=== PATIENT | female | born 1935 | race Caucasian/White ===

== ENCOUNTER → 2016-07-30 | Outpatient (CLI) | payer OTHER, BC | LOC: BRMIMAGING 08:40 | PROVIDERS: ATTEND Family Medicine | DX: R92.0 Mammographic microcalcification found on diagnostic imaging of breast (principal) | CPT/HCPCS: G0206 ==

== ENCOUNTER → 2016-08-28 | Outpatient (CLI) | payer OTHER, BC | LOC: BRMIMAGING 09:25 | PROVIDERS: ATTEND Family Medicine | DX: Z13.820 Encounter for screening for osteoporosis (principal); M81.0 Age-related osteoporosis without current pathological fracture; E21.3 Hyperparathyroidism, unspecified ==

== ENCOUNTER → 2017-01-21 | Outpatient (CLI) | payer OTHER, BC | LOC: BHFA 14:30 | PROVIDERS: ATTEND Internal Medicine Cardiovascular Disease | DX: I48.0 Paroxysmal atrial fibrillation (principal) ==

== ENCOUNTER → 2017-06-16 | Outpatient (CLI) | payer OTHER, BC | LOC: BRMIMAGING 15:16 | PROVIDERS: ATTEND Family Medicine | DX: Z12.31 Encounter for screening mammogram for malignant neoplasm of breast (principal); Z80.3 Family history of malignant neoplasm of breast ==

== ENCOUNTER 2018-02-15 13:56 | Emergency (ER) | payer OTHER, BC ==
[2018-02-15 14:31] LABS: PLATELET COUNT 403 10^3/uL (150-400)
--- NOTE | 2018-02-15 14:36 | EDPHY ---
H & P Stated Complaint: pt fell today at 1130, increased dizziness and falling Time Seen by Provider: 02/15/18 14:23 HPI/ROS: CHIEF COMPLAINT: Presyncope, mechanical fall HISTORY OF PRESENT ILLNESS: The patient presents to the ED after an episode of presyncope which resulted in a mechanical fall. She had a similar episode 7 weeks ago which resulted in a ramus fracture. She had been recovering from that uneventfully. The patient described a sensation of feeling "warm all over " prior to her episode of her presyncope. The patient did fall but did not sustain an acute injury. She is anticoagulated with Eliquis for atrial fibrillation. She recently stopped taking atenolol and started taking metoprolol. She denies any fever, cough, congestion or dysuria. REVIEW OF SYSTEMS: A comprehensive 10 point review of systems is otherwise negative aside from elements mentioned in the history of present illness. Source: Patient, Family - Personal History Current Tetanus Diphtheria and Acellular Pertussis (TDAP): Yes Tetanus Vaccine Date: 2001 - Medical/Surgical History Hx Asthma: No Hx Chronic Respiratory Disease: No Hx Diabetes: No Hx Cardiac Disease: Yes Hx Renal Disease: No Hx Cirrhosis: No Hx Alcoholism: No Hx HIV/AIDS: No Hx Splenectomy or Spleen Trauma: No Other PMH: Atrial fibrillation, Ablation/Dr. Burnette 2009, hip surgery - Social History Smoking Status: Current some day smoker - Physical Exam Exam: General Appearance: Alert, no distress Head: Atraumatic Eyes: Pupils equal, round, reactive ENT, Mouth: No hemotympanum, no oral trauma Neck: Nontender, trachea midline Respiratory: No chest wall tender, subcutaneous air, lungs clear bilaterally Cardiovascular: Regular rate and rhythm Abdomen: Abdomen is soft and nontender, pelvis stable Skin: No lacerations, No abrasion Back: No midline T/L/S pain Extremities: Nontender, full range of motion Neurological: A&Ox3, normal motor function, normal sensory exam Constitutional: Initial Vital Signs Temperature (C) 36.8 C 02/15/18 14:07 Heart Rate 64 02/15/18 14:07 Respiratory Rate 18 02/15/18 14:07 Blood Pressure 146/73 H 02/15/18 14:07 O2 Sat (%) 93 02/15/18 14:07 O2 Delivery Mode Room Air Allergies/Adverse Reactions: No Known Allergies Allergy (Verified 07/02/14 13:40) Home Medications: Medication Instructions Recorded DULoxetine 02/15/18 Eliquis 02/15/18 Metoprolol Tartrate 02/15/18 Prolia 02/15/18 Medical Decision Making - Diagnostics EKG Interpretation: EKG: Complete interpretation has been separately recorded in the [facility] archive. Summary impression: Sinus rhythm, rate 50 Imaging Results: Imaging Impressions Head CT 02/15/18 14:31 Impression: Underlying white matter disease and atrophy; otherwise negative noncontrast CT of the brain. Results called to Dr. Christoph Olsen at 3:15 PM at the time of the interpretation. ED Course/Re-evaluation: The patient presents to the ED for recurrent presyncope in the setting of a fall 7 weeks ago. The patient is anticoagulated. She believes she did strike her head her originally during the accident is uncertain whether she struck her head today. She did complain of a mild headache along her vertex. Given the fact that she is anticoagulated she was taken for a CT scan to exclude subdural hematoma. Fortunately the results of this study were normal. Physical examination demonstrates no evidence of an acute fracture clinically. Additional workup in the emergency department failed to demonstrate evidence of a anemia or metabolic derangement which would be an explanation for her presyncope. Urinalysis demonstrated no evidence of an acute infection. This point time I do feel the patient can be discharged home as she is asymptomatic and ambulatory. She will follow up with her primary care provider as needed. The patient does have mild pyuria and bacteriuria. A urine culture will be obtained prior to starting antibiotics as she has no UTI symptoms. The patient will contact the emergency department in 2 days to check the results of her urine culture. The patient was rechecked at 5:00 p.m.. She is ambulatory without acute complaints. Differential Diagnosis: Differential diagnosis considered includes intracranial hemorrhage, dehydration , metabolic abnormality, arrhythmia, vasovagal episode - Data Points Laboratory Results: Laboratory Results 02/15/18 14:25 02/15/18 14:25 02/15/18 02/15/18 02/15/18 16:15 14:27 14:25 WBC RBC Hgb Hct MCV MCH MCHC RDW Plt Count MPV Neut % (Auto) Lymph % (Auto) [place] % (Auto) Eos % (Auto) Baso % (Auto) Nucleat RBC Rel Count Absolute Neuts (auto) Absolute Lymphs (auto) Absolute Monos (auto) Absolute Eos (auto) Absolute Basos (auto) Absolute Nucleated RBC Immature Gran % Immature Gran # Sodium 139 mEq/L mEq/L (135-145) Potassium 3.9 mEq/L mEq/L (3.3-5.0) Chloride 104 mEq/L mEq/L (97-110) Carbon Dioxide 28 mEq/l mEq/l (22-31) Anion Gap 7 mEq/L L mEq/L (8-16) BUN 19 mg/dL mg/dL (7-23) Creatinine 0.8 mg/dL mg/dL (0.6-1.0) Estimated GFR > 60 Glucose 132 mg/dL H mg/dL (70-100) Calcium 9.8 mg/dL mg/dL (8.5-10.4) POC Troponin I 0.00 ng/mL ng/mL (0.00-0.08) Urine Color YELLOW Urine Appearance CLEAR Urine pH 6.0 (5.0-7.5) Ur Specific [place] 1.009 (1.002-1.030) Urine Protein NEGATIVE (NEGATIVE) Urine Ketones NEGATIVE (NEGATIVE) Urine Blood 1+ H (NEGATIVE) Urine Nitrate POSITIVE H (NEGATIVE) Urine Bilirubin NEGATIVE (NEGATIVE) Urine Urobilinogen NEGATIVE EU EU (0.2-1.0) Ur Leukocyte Esterase NEGATIVE (NEGATIVE) Urine RBC 1-3 /hpf /hpf (0-3) Urine WBC 3-5 /hpf H /hpf (0-3) Ur Epithelial Cells TRACE /lpf /lpf (NONE-1+) Urine Bacteria 3+ /hpf H /hpf (NONE SEEN) Urine Mucus TRACE /lpf /lpf (NONE-1+) Urine Glucose NEGATIVE (NEGATIVE) 02/15/18 14:25 WBC 12.40 10^3/uL H 10^3/uL (3.80-9.50) RBC 4.46 10^6/uL 10^6/uL (4.18-5.33) Hgb 12.5 g/dL L g/dL (12.6-16.3) Hct 38.3 % % (38.0-47.0) MCV 85.9 fL fL (81.5-99.8) MCH 28.0 pg pg (27.9-34.1) MCHC 32.6 g/dL g/dL (32.4-36.7) RDW 13.5 % % (11.5-15.2) Plt Count 403 10^3/uL H 10^3/uL (150-400) MPV 9.1 fL fL (8.7-11.7) Neut % (Auto) 84.8 % H % (39.3-74.2) Lymph % (Auto) 9.4 % L % (15.0-45.0) [place] % (Auto) 5.1 % % (4.5-13.0) Eos % (Auto) 0.2 % L % (0.6-7.6) Baso % (Auto) 0.2 % L % (0.3-1.7) Nucleat RBC Rel Count 0.0 % % (0.0-0.2) Absolute Neuts (auto) 10.51 10^3/uL H 10^3/uL (1.70-6.50) Absolute Lymphs (auto) 1.16 10^3/uL 10^3/uL (1.00-3.00) Absolute Monos (auto) 0.63 10^3/uL 10^3/uL (0.30-0.80) Absolute Eos (auto) 0.03 10^3/uL 10^3/uL (0.03-0.40) Absolute Basos (auto) 0.03 10^3/uL 10^3/uL (0.02-0.10) Absolute Nucleated RBC 0.00 10^3/uL 10^3/uL (0-0.01) Immature Gran % 0.3 % % (0.0-1.1) Immature Gran # 0.04 10^3/uL 10^3/uL (0.00-0.10) Sodium Potassium Chloride Carbon Dioxide Anion Gap BUN Creatinine Estimated GFR Glucose Calcium POC Troponin I Urine Color Urine Appearance Urine pH Ur Specific [place] Urine Protein Urine Ketones Urine Blood Urine Nitrate Urine Bilirubin Urine Urobilinogen Ur Leukocyte Esterase Urine RBC Urine WBC Ur Epithelial Cells Urine Bacteria Urine Mucus Urine Glucose Point of Care Test Results: Chemistry 02/15/18 14:27 POC Troponin I 0.00 ng/mL ng/mL (0.00-0.08) Departure - Departure Disposition: Home, Routine, Self-Care Clinical Impression: Vasovagal syncope Condition: Good Instructions: Hypotension (ED) Additional Instructions: 1. Your workup in the emergency department today demonstrates no obvious explanation for lightheadedness. 2. Please return to the ED for any worsening symptoms, chest pain, difficulty breathing or other concerns. 3. Please follow up with your primary care provider as needed. 4. We will be obtaining a urine culture to see if you have evidence of urinary tract infection. Please contact the emergency department in 2 days at to check the results. Referrals: Yury Anaya [Primary Care Provider] - As per Instructions
--- NOTE | 2018-02-15 14:37 | CPEKG ---
Test Reason : OPEN Blood Pressure : / mmHG Vent. Rate : 050 BPM Atrial Rate : 050 BPM P-R Int : 209 ms QRS Dur : 093 ms QT Int : 469 ms P-R-T Axes : 090 -24 072 degrees QTc Int : 428 ms Sinus rhythm Probable left atrial enlargement Borderline left axis deviation Confirmed by Avelino Coon ([id number]) on 02/15/2018 2:37:11 PM Referred By: Confirmed By:Avelino Coon
[2018-02-15 17:10] VITALS: BP 139/70
== END 2018-02-15 17:12 | disposition home or self-care (01) ==
DX: R55 Syncope and collapse (principal); R29.6 Repeated falls; I25.10 Atherosclerotic heart disease of native coronary artery without angina pectoris; Z79.01 Long term (current) use of anticoagulants
CPT/HCPCS: 84484-PO

== ENCOUNTER → 2018-03-14 | Outpatient (CLI) | payer OTHER, BC | LOC: BHCLAF 14:00 | PROVIDERS: ATTEND Internal Medicine | DX: R55 Syncope and collapse (principal); I48.91 Unspecified atrial fibrillation | CPT/HCPCS: 93306-PO ==

== ENCOUNTER → 2018-05-18 | Day surgery (SDC) | payer OTHER, BC ==
[~2018-05-18] MED LIST: LIDOCAINE 1% 300 MG/30 ML SDV SC ONE
--- NOTE | 2018-05-18 13:48 | EPPROC ---
Electrophysiology Procedure Note: PROCEDURE PERFORMED: Implantation of Medtronic LINQ Implantable Loop Recorder INDICATION: Syncope PROCEDURE NOTE: Patient was on table after EP study. L parasternal area was prepped and draped. Lidocaine plus bupivacaine was used for local anesthesia. Using provided insertion tool, LINQ device was placed along the 4th intercostal space. Appropriate dressing was applied. The patient left the cardiac catheterization laboratory in stable condition. Serial Numbers: Medtronic Reveal LINQ SB [id number] Programming: Patient Activated events 3 Auto Activated events 27 (Asystole 3s, HR <30 bpm, >180 bpm, >220bpm)
== END | disposition home or self-care (01) ==
LOC: FCATH 10:15
PROVIDERS: ATTEND Internal Medicine Cardiovascular Disease
PROC: 0JH602Z Insertion of Monitoring Device into Chest Subcutaneous Tissue and Fascia, Open Approach (ICD-10-PCS; principal; 2018-05-18)
DX: I48.0 Paroxysmal atrial fibrillation (principal); R55 Syncope and collapse; Z79.01 Long term (current) use of anticoagulants; F17.200 Nicotine dependence, unspecified, uncomplicated
CPT/HCPCS: C1764

== ENCOUNTER 2018-05-25 12:30 | Observation (INO) | payer OTHER, BC ==
[~2018-05-25 12:30] MED LIST changes: +BACITRACIN IRRIGATION/NS 50,000 UNITS/1,000 ML BTL IRR ONE; +DIAZEPAM 5 MG TAB PO ONE; -LIDOCAINE 1% 300 MG/30 ML SDV SC ONE; +NS 1,000 ML IV ONE; +ceFAZolin 2 GM/DEXTROSE 100 ML IV ONE; +diphenhydrAMINE 25 MG CAP PO ONE
[2018-05-25 13:20] LABS: PLATELET COUNT 352 10^3/uL (150-400)
[2018-05-25 13:34] LABS: INR 1.17 (0.83-1.16); PROTIME(PATIENT) 15.1 SEC (12.0-15.0)
--- NOTE | 2018-05-25 15:48 | PDGENHP ---
History & Physical Chief Complaint: Ventricular pauses History of Present Illness: Pauses noted on ILR interrogation today, duration up to 11 seconds occurring in both AF and NSR. Prior syncopal episode. Relevant Physical Exam: General: A&Ox4, no apparent distress. Respiratory: CTA. Cardiac: Regular rate and rhythm, S1, S2 Cardiorespiratory Assessment: Patient is anticoagulated with Eliquis, but the risk of recurrent syncope in the context of pauses lasting 11 seconds outweighs the risk for bleeding in the situation. Plan to proceed with implant of [facility]. Pop PPM today.
[2018-05-25] MEDS ORDERED: IOPAMIDOL (ISOVUE-300) 100 ML BTL ONE (17:05)
[2018-05-25] MEDS ORDERED: LIDOCAINE 1% 300 MG/30 ML SDV ONE (17:05)
[2018-05-25] MEDS ORDERED: BUPIVACAINE 0.75% 10 ML SDV ONE (17:05)
--- NOTE | 2018-05-25 17:11 | PDANEPAE ---
ANE History of Present Illness pacer ANE Past Medical History - Cardiovascular History Hx Hypertension: Yes Hx Arrhythmias: Yes Hx Chest Pain: No Hx Coronary Artery / Peripheral Vascular Disease: No Hx CHF / Valvular Disease: No Hx Palpitations: No - Pulmonary History Hx COPD: Yes Hx Asthma/Reactive Airway Disease: No Hx Recent Upper Respiratory Infection: No Hx Oxygen in Use at Home: Yes O2 in Use at Home (L/minute): 2@night Hx Sleep Apnea: No - Neurologic History Hx Cerebrovascular Accident: No Hx Seizures: No Hx Dementia: No - Endocrine History Hx Diabetes: No Hypothyroid: No Hyperthyroid: No Obesity: no - Renal History Hx Renal Disorders: No - Liver History Hx Hepatic Disorders: No ANE Review of Systems Review of Systems: - Exercise capacity Exercise capacity: >=4 METS ANE Patient History - Allergies Allergies/Adverse Reactions: No Known Allergies Allergy (Verified 07/02/14 13:40) - Home Medications Home Medications: Apixaban [Eliquis] 5 mg PO BID 02/15/18 [Last Taken 05/25/18] Metoprolol Tartrate [Lopressor 25 mg (*)] 12.5 mg PO BID 02/15/18 [Last Taken ] Acetaminophen [Tylenol 325mg (*)] 325 mg PO DAILY PRN 05/25/18 [Last Taken Unknown] Calcium Carbonate [Oyster Shell Calcium 500 mg (*)] 500 mg PO DAILY 05/25/18 [ Last Taken 05/24/18] Cholecalciferol Vit D3 [Vitamin D3 (*)] 1,000 units PO DAILY 05/25/18 [Last Taken 05/24/18] DULoxetine [Cymbalta 30 MG (*)] 30 mg PO HS 05/25/18 [Last Taken 05/24/18] - NPO status NPO Status: no food or drink >8 hours - Smoking Hx Smoking Status: Current some day smoker ANE Labs/Vital Signs - Labs Result Diagrams: 05/25/18 12:35 05/25/18 12:35 - Vital Signs Height: 178 cm Weight: 75.7 kg ANE Physical Exam - Airway Mallampati Score: Class 2 Mouth exam: normal dental/mouth exam - Pulmonary Pulmonary: no respiratory distress - Cardiovascular Cardiovascular: regular rate and rhythym - ASA Status ASA Status: III ANE Anesthesia Plan Anesthesia Plan: GA with mask, MAC
[2018-05-25] MEDS ORDERED: PROPOFOL/EMULSION 500 MG/50 ML BOTTLE IV ONE (17:14)
[2018-05-25] MEDS ORDERED: fentaNYL 100 MCG/2 ML INJ ONE (17:14)
[2018-05-25] MEDS ORDERED: LIDOCAINE 2% 2 ML INJ ONE ×2 (17:16)
[2018-05-25] MEDS ORDERED: MIDAZOLAM 2 MG/2 ML VIAL ONE (17:19)
--- NOTE | 2018-05-25 17:58 | CPEKG ---
Test Reason : OPEN Blood Pressure : / mmHG Vent. Rate : 048 BPM Atrial Rate : 048 BPM P-R Int : 213 ms QRS Dur : 095 ms QT Int : 477 ms P-R-T Axes : 082 -21 071 degrees QTc Int : 427 ms Sinus bradycardia Borderline left axis deviation Confirmed by Roel Groves ([id number]) on 05/25/2018 5:57:52 PM Referred By: Confirmed By:Roel Groves
--- NOTE | 2018-05-25 18:30 | EPPROC ---
Electrophysiology Procedure Note: PROCEDURE PERFORMED: 1. Implantation of an A/V Pacemaker 2. Subclavian vein angiography 3. Fluoroscopy 4. Explant of LINQ ILR INDICATION: Presyncope Pauses up to 11 s documented on ILR PROCEDURE NOTE: Patient presented to the cardiac catheterization laboratory in a fasting, post absorptive state . Dr. Renee administered sedation. The left infraclavicular area was prepped and draped in the usual sterile fashion. Lidocaine plus bupivacaine was used for local anesthesia. Left subclavian venography was performed by injection of iodinated contrast into the left antecubital vein. This was done to assure patency of the vein and also to assess for any anatomical aberrations. Using a combination of blunt and sharp dissection and electrocautery, the dissection was carried down to the prepectoral fascia. A pocket was made in this anatomical plane. All bleeding was controlled with electrocautery. The pocket was packed with gauze soaked in antibiotic solution. Fluoroscopy was utilized during the entire procedure for venous access and placement of the leads. Using a direct stick technique the left extrathoracic axillary vein was accessed with 2 sticks using the modified Seldinger technique. Placement of the guidewires into the venous system was confirmed by low-pressure blood return and also by visualizing the guidewires advancing into the inferior vena cava. A purse string suture was applied around the guidewires. Two #7 [place] sheaths were advanced under fluoroscopic guidance over the guidewire. An active fixation ventricular lead was advanced into the right ventricular apex and screwed in place. An active fixation atrial lead was advanced into the right atrial appendage and screwed in place. The peel away sheaths were removed. Pacing thresholds, sensing parameters and lead impedances were measured. There was no diaphragmatic stimulation at maximum output. The leads were sutured to the prepectoral fascia with 3 nonabsorbable sutures each. The pocket was again inspected for any bleeding. The leads were attached to the pacemaker securely. The pacemaker was inserted into the pocket and secured in place with a nonabsorbable suture. Fluoroscopy was performed in MED[place] and [place] planes to verify right-sided placement of the leads. Also fluoroscopy of the pacemaker pocket was performed. Medtronic LINQ ILR was explanted and wound closed with katy. The pacemaker pocket was closed in 3 layers with absorbable monocryl sutures and katy. Appropriate dressing was applied. The patient left the cardiac catheterization laboratory in stable condition. Serial Numbers: 1. Device: SJM Assurity [id number] 2. Atrial Lead: SJM Tendril 8 SN [id number] 3. Ventricular Lead: SJM Tendril 2087 SN [id number] Stimulation Thresholds & Impedance Measurements: 1. Atrial Lead P 4.4 mV 1.1 V 0.5 ms 466 ohm 2. Ventricular Lead R 8.7 mV 0.6 V 0.5 ms 716 ohm Shai Pacing Parameters 1. Pacing mode: DDDR 2. Lower rate: 60ppm 3. Upper tracking rate: 130 ppm 4. Upper sensor rate: 130 ppm
[2018-05-25] MEDS ORDERED: ACETAMINOPHEN 325 MG TAB PO PRN (18:31)
[2018-05-25] MEDS ORDERED: ALBUTEROL 3 ML DEYVIAL IH PRN (18:34)
[2018-05-25] MEDS ORDERED: fentaNYL 100 MCG/2 ML INJ IVP PRN (18:34)
[2018-05-25] MEDS ORDERED: NALOXONE HCL 0.4 MG/ML INJ IVP PRN (18:34)
--- NOTE | 2018-05-25 18:34 | POSTANESTH ---
Post Anesthetic Evaluation Cardiovascular Status: Normal, Stable Respiratory Status: Normal, Stable Level of Consciousness/Mental Status: Can Participate in Eval Pain Control: Adequate, Prn Tx Ordered Nausea/Vomiting Control: Adequate, Prn Tx Ordered Complications Possibly Related to Anesthesia: None Noted
[2018-05-25] MEDS ORDERED: DULoxetine 30 MG CAP PO SCH (21:00)
[2018-05-25] MEDS: METOPROLOL TARTRATE 25 MG TAB PO SCH (22:20)
[2018-05-26 04:30] LABS: PLATELET COUNT 322 10^3/uL (150-400)
[2018-05-26] MEDS: METOPROLOL TARTRATE 25 MG TAB PO SCH (08:35)
[2018-05-26] MEDS ORDERED: CALCIUM CARBONATE 500 MG TAB PO SCH (09:00)
[2018-05-26] MEDS ORDERED: CHOLECALCIFEROL VIT D3 1,000 UNITS TAB PO SCH (09:00)
--- NOTE | 2018-05-26 09:57 | CPEKG ---
Test Reason : OPEN Blood Pressure : / mmHG Vent. Rate : 060 BPM Atrial Rate : 060 BPM P-R Int : 248 ms QRS Dur : 096 ms QT Int : 430 ms P-R-T Axes : -09 -32 067 degrees QTc Int : 430 ms Atrial-paced rhythm Confirmed by Roel Groves ([id number]) on 05/26/2018 9:57:24 AM Referred By: Confirmed By:Roel Groves
--- NOTE | 2018-05-26 09:59 | CPEKG ---
Test Reason : OPEN Blood Pressure : / mmHG Vent. Rate : 070 BPM Atrial Rate : 072 BPM P-R Int : 219 ms QRS Dur : 084 ms QT Int : 417 ms P-R-T Axes : 025 -53 071 degrees QTc Int : 450 ms Atrial-paced rhythm Nonspecific T abnrm, anterolateral leads Confirmed by Roel Groves ([id number]) on 05/26/2018 9:58:42 AM Referred By: Confirmed By:Roel Groves
[2018-05-26 10:38] VITALS: BP 121/79
--- NOTE | 2018-05-26 10:54 | ASDISCHSUM ---
Discharge Information Plan Status:Home with No Needs Medically Cleared to Leave:05/25/2018 Discharge Date:05/25/2018 CM D/C Disposition:Home, Routine, Self-Care ADT D/C Disposition:Home, Routine, Self-Care Projected Discharge Date:05/25/2018 Transportation at D/C:Family Discharge Delay Reason: Follow-Up Date:05/25/2018 Discharge Slot: Final Diagnosis: Placement Information Patient Contact Information Contact Name:SKIP Relationship: Address:[address] Work Phone: City:[place] Alternate Phone: State/Zip Code:[place] [address] Email: Financial Information Financial Class:Medicare Primary Plan Desc:MEDICARE OUTPATIENT Primary Plan Number:[id number] Secondary Plan Desc: OUT OF [facility] Secondary Plan Number:[id number] Assessment Information LACE LACE Length of stay for Answers: Less than 1 day current admission Acuity / Level of Answers: No Care: Did the patient have an inpatient admission? Comorbidities - select Answers: Chronic pulmonary disease all that apply Other Notes: HTN # of Emergency department Answers: 1-2 visits in the last 6 months Score: 4 Date Signed: 05/26/2018 10:53 AM Electronically Signed By:Nara Butler RN Intervention Information
--- NOTE | 2018-05-26 19:10 | GDS ---
SUPERVISING [employer]E [employer]LECTION DRIVER: Bert Burnette MD ADMISSION DIAGNOSES: Syncope and pre-syncope with pauses up to 11 seconds documented on implanted loop recorder. DISCHARGE DIAGNOSIS: Status post implant of dual-chamber permanent pacemaker. PROCEDURES PERFORMED THIS HOSPITALIZATION: 1. Implant of dual-chamber permanent pacemaker 2. Explant of LINQ loop recorder HOSPITAL COURSE: Patient presented to our clinic for interrogation of her newly implanted loop recorder. At that time, pauses up to 11 seconds were noted on device interrogation with pauses occurring both in sinus rhythm and in atrial fibrillation. Patient was subsequently transferred to the [facility] where she underwent placement of a dual-chamber permanent pacemaker by Dr. Bert Burnette. She has done well in the post procedure period without any issues overnight. She has been up walking this morning and denies any new or concerning symptoms. Chest x-ray this morning demonstrates appropriate lead position, and device interrogation this morning demonstrates normal device function. Patient is appropriate and stable for discharge home today. CURRENT PHYSICAL EXAMINATION: GENERAL: Patient is alert and oriented x4 without apparent distress. RESPIRATORY: Clear to auscultation without adventitious breath sounds. CARDIAC: Regular S1, S2 without murmurs, gallops, or rubs. Rhythm is regular. No peripheral edema. Capillary refill is less than 2 seconds. SKIN: Left pectoral incision with clean and dry dressing. Dressing is intact. There is no evidence of hematoma. LABORATORY STUDIES: Drawn this morning demonstrate stable CBC and BMP. PROCEDURES: Implant of dual-chamber permanent pacemaker and explant of implanted loop recorder as described above. Chest x-ray this morning demonstrates appropriate lead position. Electrocardiogram this morning demonstrates a-paced rhythm without new ST or T-wave abnormalities. DISCHARGE DISPOSITION: Patient will be discharged home in stable condition. She is under activity restrictions and may not lift her arm above the level of her shoulder for the next 6 weeks. She may resume driving after 48 hours. DISCHARGE MEDICATIONS: Please see discharge med reconciliation sheet. No medication changes during this hospitalization. DISCHARGE INSTRUCTIONS: Post-pacemaker implantation discharge instructions reviewed with patient and her in detail. We reviewed monitoring for signs of infections and activity restrictions. The patient has a followup appointment with our device clinic in 1 week, and she will contact our office to schedule a followup visit with Dr. Burnette in 4 weeks. At the time of discharge , she verbalizes understanding of all instructions and has no questions or concerns. She will contact the clinic if she experiences any new or concerning symptoms prior to her upcoming followup visit. Greater than 30 minutes spent on discharge coordinating care, counseling, and providing patient/family education /[id number]/MODL [id number]
--- NOTE | 2018-05-28 18:02 | CPEKG ---
Test Reason : OPEN Blood Pressure : / mmHG Vent. Rate : 137 BPM Atrial Rate : 060 BPM P-R Int : 250 ms QRS Dur : 102 ms QT Int : 435 ms P-R-T Axes : -84 -49 009 degrees QTc Int : 657 ms Atrial-paced rhythm PVCs Prolonged QT interval Confirmed by Roel Groves ([id number]) on 05/28/2018 6:01:58 PM Referred By: Confirmed By:Roel Groves
== END 2018-05-26 11:10 | disposition home or self-care (01) ==
LOC: FCATH 12:30 → F2W 18:30
PROVIDERS: ADMIT Internal Medicine Cardiovascular Disease; ATTEND Internal Medicine Cardiovascular Disease
DX: I49.5 Sick sinus syndrome (principal); R55 Syncope and collapse; I48.0 Paroxysmal atrial fibrillation; F17.200 Nicotine dependence, unspecified, uncomplicated; I10 Essential (primary) hypertension; J44.9 Chronic obstructive pulmonary disease, unspecified; Z79.01 Long term (current) use of anticoagulants
CPT/HCPCS: 33208; 33284; 71045; 71046; 93005; C1785; C1898; J0690; J2250; J2704; J3010; Q9967

== ENCOUNTER → 2018-07-26 | Outpatient (CLI) | payer OTHER, BC | LOC: BRMIMAGING 13:25 | PROVIDERS: ATTEND Internal Medicine | DX: Z12.31 Encounter for screening mammogram for malignant neoplasm of breast (principal); Z80.3 Family history of malignant neoplasm of breast ==